=== PATIENT | female | born 1980 | race Caucasian/White ===

== ENCOUNTER 2024-12-30 14:23 | Emergency (ER) | payer MEDICARE ==
[~2024-12-30] VITALS: Ht 149.9 cm; Wt 65.8 kg
== END 2024-12-30 17:10 | disposition home or self-care (01) ==
LOC: ER 14:23
DX: R06.02 Shortness of breath (principal); R05.9 Cough, unspecified; Z88.2 Allergy status to sulfonamides; Z88.8 Allergy status to other drugs, medicaments and biological substances; Z88.5 Allergy status to narcotic agent
CPT/HCPCS: 71046; 99283-25